=== PATIENT | male | born 1985 | race Caucasian/White ===

== ENCOUNTER 2017-02-09 21:26 | Emergency (ER) | payer OTHER ==
[~2017-02-09] VITALS: Ht 170.2 cm; Wt 111.5 kg
[2017-02-09 21:29] VITALS: Ht 170.2 cm; Wt 111.5 kg
[2017-02-10] MEDS ORDERED: KETOROLAC 60 MG INJ IM STA (00:47)
--- NOTE | 2017-02-10 01:26 | ERD ---
ER Documentation Chief Complaint Date/Time DATE: 02/10/17 TIME: 01:24 Chief Complaint cough x 3 days HPI 31-year-old male presents to emergency department for complaints of cough for 3 days, right-sided chest pain, right rib pain for 3 days. Patient described the pain as sharp pain, succession scale, is worse upon taking a deep breath. Patient has been having dry cough, does not cough up any phlegm or blood. Patient denies any shortness of breath or wheezing. Patient denies any fever or chills. Patient denies any dyspnea on exertion or dyspnea on lying down. Patient did not take any medication to help with symptoms. ROS All systems reviewed and are negative except as per history of present illness. Medications Home Meds Reported Medications [none] Unknown Strength No Conflict Check 02/10/17 Allergies Allergies: Coded Allergies: No Known Allergy (Unverified , 02/09/17) PMhx/Soc History of Surgery: Yes (appy) Anesthesia Reaction: No Hx Alcohol Use: Yes (appendectomy) Hx Substance Use: No Hx Tobacco Use: Yes Smoking Status: Current every day smoker FmHx Family History: No coronary disease, No diabetes, No other Physical Exam Vitals Vital Signs Date Time Temp Pulse Resp B/P Pulse Ox O2 Delivery O2 Flow Rate FiO2 02/10/17 01:11 98.4 83 02/09/17 21:29 98.4 115 20 170/80 98 Physical Exam GENERAL: The patient is well developed and appropriate for usual state of health, in no apparent distress. CHEST: Clear to auscultation bilaterally. There are no rales, wheezes or rhonchi. No tenderness on palpation on the right anterior and mid axillary fifth 6th and seventh rib. HEART: Regular rate and rhythm. No murmurs, clicks, rubs or gallops. No S3 or S4. ABDOMEN: Soft, nontender and nondistended. Good bowel sounds. No rebound or guarding. No gross peritonitis. No gross organomegaly or masses. No Lindsey sign or McBurney point tenderness. BACK: No midline or flank tenderness. EXTREMITIES: Equal pulses bilaterally. There is no peripheral clubbing, cyanosis or edema. No focal swelling or erythema. Full range of motion. Grossly neurovascularly intact. NEURO: Alert and oriented. Cranial nerves 2-12 intact. Motor strength in all 4 extremities with 5/5 strength. Sensation grossly intact. Normal speech and gait. SKIN: There is no apparent rash or petechia. The skin is warm and dry. HEMATOLOGIC AND LYMPHATIC: There is no evidence of excessive bruising or lymphedema. No gross cervical, axillary, or inguinal lymphadenopathy. Results 24 hrs Current Medications Medications (Trade) Dose Ordered Sig/Eduardo Route PRN Reason Start Time Stop Time Status Last Admin Dose Admin Ketorolac Tromethamine (Toradol) 60 mg ONCE STAT IM 02/10/17 00:47 02/10/17 00:49 DC 02/10/17 01:37 Patient was given medication for pain here in emergency department, after treatment, patient verbalized feeling much better. Patient's pain is improved. PROCEDURE: AP and lateral chest x-ray. CLINICAL INDICATION: Right-sided chest and rib pain. TECHNIQUE: AP and lateral views of the chest. COMPARISON: None. FINDINGS: There is no pulmonary edema or conolidation. The cardiothymic silhouette is magnified. No pleural effusion is seen. There is no pneumothorax. The osseous structures are unremarkable. IMPRESSION: 1. No radiographic evidence of acute cardiopulmonary disease. RPTAT: HTAR .Roly Arteaga MD, MD Date Time Electronically viewed and signed by .Roly Arteaga MD, MD on 02/10/2017 02:06 .R/ CC: [facility] EKG was done, read by me and is normal sinus rhythm at a rate of 83, normal axis , there is no ST changes or changes in the EKG that indicates any cardiac emergencies at this time. Patient's EKG was also reviewed by Dr Ly. Impression: no acute findings on EKG Procedures/MDM Medical Decision Making: Patient symptoms are most likely consistent with acute bronchitis, which viral in origin. There is low suspicion for Pneumonia at this time since patients lungs sounds are clear, patient O2 saturation is normal and patient doesnt show any respiratory distress. Patients chest xray doesnt show infiltrates or any other cardiopulmonary emergencies at this time. There is low suspicion for other cardiopulmonary emergencies at this time such as CHF, Pulmonary Embolism, Pneumothorax, Aortic Aneurysm or any other cardiopulmonary emergencies at this time. There is low suspicion for sepsis. Patient appears well and is hemodynamically stable. Patient does not have any fever Disposition: Home. Condition: Stable Prescriptions: Guaifenesin with codeine albuterol ibuprofen Instructions: Patient is advised to take medications as prescribed. Patient is advised to rest. Patient advised to increase fluid intake, do humidifier at home and if possible, do salt water gargles. Patient is advised that if symptoms are worse, shortness of breath, uncontrolled fever, stridor, vomiting, worst signs and symptoms to return to emergency department immediately. Otherwise, patient is advised to follow up with primary doctor in 5-7 days. Departure Diagnosis: Primary Impression: Acute bronchitis Bronchitis organism: unspecified organism Qualified Code: J20.9 - Acute bronchitis, unspecified organism Condition: Stable Patient Instructions: Bronchitis, No Antibiotic (Adult) Additional Instructions: Patient is advised to take medications as prescribed. Patient is advised to rest. Patient advised to increase fluid intake, do humidifier at home and if possible, do salt water gargles. Patient is advised that if symptoms are worse, shortness of breath, uncontrolled fever, stridor, vomiting, worst signs and symptoms to return to emergency department immediately. Otherwise, patient is advised to follow up with primary doctor in 5-7 days. TREVOR RENEE NP February 10, 2017 01:26
--- NOTE | 2017-02-10 02:07 | RADRPT ---
PROCEDURE: AP and lateral chest x-ray. CLINICAL INDICATION: Right-sided chest and rib pain. TECHNIQUE: AP and lateral views of the chest. COMPARISON: None. FINDINGS: There is no pulmonary edema or conolidation. The cardiothymic silhouette is magnified. No pleural effusion is seen. There is no pneumothorax. The osseous structures are unremarkable. IMPRESSION: 1. No radiographic evidence of acute cardiopulmonary disease. RPTAT: HTAR .Roly Arteaga MD, MD Date Time Electronically viewed and signed by .Roly Arteaga MD, on 02/10/2017 02:06 .R/
--- NOTE | 2017-02-10 02:08 | RADRPT ---
PROCEDURE: Right rib x-rays CLINICAL INDICATION: Right-sided chest and rib pain. TECHNIQUE: 4 views of the right ribs. COMPARISON: None available. FINDINGS: No displaced rib fracture is identified. There is no pneumothorax. The right lung is clear. The c ardiac silhouette is partially imaged. There is no pleural effusion. IMPRESSION: 1. No rib fracture is identified, although the presence of a nondisplaced rib fracture cannot be ex cluded. RPTAT: HTAR .Roly Arteaga MD, MD Date Time Electronically viewed and signed by .Roly Arteaga MD, on 02/10/2017 02:08 .R/
[2017-02-10] MEDS ORDERED: GUAI473L22 PO (02:36)
[2017-02-10] MEDS ORDERED: IBUP-1542 PO (02:36)
[2017-02-10] MEDS ORDERED: ALBU8.5H3 INH (02:36)
[2017-02-10 03:01] VITALS: BP 151/98; PULSE 95; RESP 16; TEMP 98.3
== END 2017-02-10 03:02 | disposition home or self-care (01) ==
LOC: FTE 21:26
DX: J20.9 Acute bronchitis, unspecified (principal); R07.9 Chest pain, unspecified
CPT/HCPCS: 71020; 71100; 93005; 96372; J1885; Z7502

== ENCOUNTER 2017-02-28 04:56 | Emergency (ER) | payer OTHER ==
[~2017-02-28] VITALS: Ht 185.4 cm; Wt 108.0 kg
[~2017-02-28 04:56] MED LIST: ALBU8.5H3 INH; GUAI473L22 PO; IBUP-1542 PO
[2017-02-28 05:05] VITALS: Ht 185.4 cm; Wt 108.0 kg
--- NOTE | 2017-02-28 07:07 | ERA ---
ER Documentation Chief Complaint Date/Time DATE: 02/28/17 TIME: 07:06 Chief Complaint SOB HPI This is an obese otherwise healthy 31-year-old male presenting with a chief complaint of right sided chest pain. Patient was trying to fall asleep when onset began. Describes the pain as 10 out of 10 and worse when taking deep breaths. Patient has a positive history of smoking since "I was little". Patient denies recent travel, fever, chills, squeezing like chest pain with exertion, claudication, family history of cardiac or pulmonary disease, medications, drug use, alcohol use. Patient works as a cook. Girlfriend later presents and gives a positive history of excessive alcohol use. Patient was seen for similar symptoms on February 09 and was diagnosed with acute bronchitis discharged with Motrin and albuterol inhaler. Patient has not taken any Motrin for relief but he has used the inhaler with minimal relief. Patient denies any medical conditions including clotting and cardiopulmonary disease. ROS All systems reviewed and are negative except as per history of present illness. Medications Home Meds Active Scripts Albuterol Sulfate* (Proair HFA*) 8.5 Gm Hfa.aer.ad, 2 PUFF INH Q4H Y for WHEEZING AND SOB, #1 INHALER Prov:TREVOR RENEE NP 02/10/17 Ibuprofen* (Motrin*) 600 Mg Tab, 600 MG PO Q6H Y for PAIN AND OR ELEVATED TEMP, #30 TAB Prov:TREVOR RENEE NP 02/10/17 Guaifenesin-Codeine Phosphate* (Guaifenesin* AC Cough Syrup) 473 Ml Liquid, 10 ML PO Q4H Y for COUGH, #120 ML Prov:TREVOR RENEE NP 02/10/17 Reported Medications [none] Unknown Strength No Conflict Check 02/10/17 Allergies Allergies: Coded Allergies: No Known Allergy (Unverified , 02/09/17) PMhx/Soc History of Surgery: Yes (appy) Anesthesia Reaction: No Hx Alcohol Use: Yes Hx Substance Use: No Hx Tobacco Use: Yes Smoking Status: Current every day smoker Physical Exam Vitals Vital Signs Date Time Temp Pulse Resp B/P Pulse Ox O2 Delivery O2 Flow Rate FiO2 02/28/17 12:03 98.8 115 22 145/94 95 Room Air 02/28/17 10:19 111 24 99 02/28/17 08:40 105 28 92 02/28/17 05:05 98.3 115 28 129/82 92 Physical Exam Const: Overweight 31-year-old male laying in bed with sheets over him on initial presentation. Head: Atraumatic Eyes: Normal Conjunctiva ENT: Normal External Ears, Nose and Mouth. Neck: No lymphadenopathy. Full range of motion..~ No meningismus. Resp: Expiratory rales and rhonchi heard in all lung zamora bilaterally. Minimal inspiratory findings. Mild to moderate pulmonary exertion. Equal chest expansion bilaterally. No excessive dullness or tympany to percussion in all lung zamora bilaterally. Cardio: Regular rate and rhythm, no murmurs. No JVD noted. Abd: Soft, non tender, non distended. Normal bowel sounds Skin: Healed 6-8 cm horizontal scar noted on the right chest midaxillary line. Back: No midline or flank tenderness Ext: No cyanosis, or edema Neur: Awake and alert Psych: Normal Mood and Affect Results 24 hrs Current Medications Medications (Trade) Dose Ordered Sig/Eduardo Route PRN Reason Start Time Stop Time Status Last Admin Dose Admin Acetaminophen (Tylenol Tab) 650 mg ONCE ONCE PO 02/28/17 07:30 02/28/17 07:31 DC 02/28/17 07:55 Albuterol (Proventil 0.083% (Neb)) 5 mg ONCE STAT N 02/28/17 08:31 02/28/17 08:33 DC 02/28/17 08:57 Ipratropium [place] (Atrovent 0.02% (Neb)) 0.5 mg ONCE ONCE HHN 02/28/17 09:00 02/28/17 09:01 DC 02/28/17 08:58 Methylprednisolone Sodium Succinate (Solu-Medrol) 125 mg ONCE ONCE IM 02/28/17 10:30 02/28/17 10:31 DC 02/28/17 10:10 Albuterol (Proventil 0.083% (Neb)) 5 mg ONCE STAT HHN 02/28/17 10:01 02/28/17 10:05 DC 02/28/17 10:18 Ipratropium [place] (Atrovent 0.02% (Neb)) 0.5 mg ONCE ONCE N 02/28/17 10:30 02/28/17 10:31 DC 02/28/17 10:18 Procedures/MDM Patient was worked up for lateral right-sided chest wall pain. Physical exam of the oropharynx was unremarkable. X-rays taken on February 09 and was repeated today of the chest with an additional x-ray of the right ribs. Patient was given 650 mg of Tylenol for pain relief in the emergency department. X-rays of the chest and x-rays of the right ribs were unremarkable. Patient was also given a breathing treatment in the ED. After breathing treatment administration , patient was reevaluated and still had extensive rales and rhonchi in the chest during expiration bilaterally. Tripoding is noted after exertion. No neck extension while breathing. I spoke with my attending Dr. Baron who suggested 125 mg IM of Solu-Medrol and another breathing treatment. Breathing treatment and steroids were administered and reevaluated 30 minutes later and 1 hour later. Upon reevaluation 1 hour later the patient has moderately improved with minimal rales and rhonchi findings predominantly in the upper lobes bilaterally. Exertion still produced shortness of breath and tripoding to assist with breathing. Patient states that he feels about "50% better". Still complaining of chest wall pain on the right side. Patient's oxygen saturation has increased to 95 at rest. At this time I spoke with my attending who has agreed that monitoring patient overnight may be the best possible option at this point due to slow recovery and the likelihood return to ED. This patient will now be transferred to ED 1 and be under the care of Dr. Atkinson. I have spoken with the patient and he understands his current status. Departure Diagnosis: Primary Impression: Shortness of breath Additional Impressions: Chest wall pain Right-sided chest wall pain Condition: Stable Additional Instructions: Being transferred to ED 1. Comments Before transfer to ED 1 patient left AMA. Patient states that he has enough albuterol without getting another prescription and refused to take any prescription medications on departure. I have sat down and talked to the patient about the severity of his current condition and the importance of him to be medically observed and further managed. Patiently verbally so that he understood but just does not have time to stay in the ER. Patient then proceeded to sign AMA papers and leave without reevaluation. EMRE BROWNING PA-C February 28, 2017 07:07
[2017-02-28] MEDS ORDERED: ACETAMINOPHEN 325 MG TAB PO ONE (07:30)
--- NOTE | 2017-02-28 08:07 | RADRPT ---
PROCEDURE: XR Chest. CLINICAL INDICATION: chest pain TECHNIQUE: PA and lateral views of the chest were obtained COMPARISON: 02/10/2017 FINDINGS: The heart and mediastinum are within normal limits. The lungs are clear. There is no pleural effusion or pneumothorax. The bones and soft tissues are unremarkable. RPTAT: AA IMPRESSION: No acute disease. .Luis Tinajero MD, MD Date Time Electronically viewed and signed by .Luis Tinajero MD, on 02/28/2017 08:07 .S/
--- NOTE | 2017-02-28 08:08 | RADRPT ---
PROCEDURE: XR ribs . CLINICAL INDICATION: pain TECHNIQUE: AP and oblique views of the right ribs were obtained. COMPARISON: 02/10/2017 FINDINGS: The bone mineralization is normal. There is no acute fracture or subluxation. The soft tissues are unremarkable. RPTAT: AA IMPRESSION: No acute fracture. .Luis Tinajero MD, MD Date Time Electronically viewed and signed by .Luis Tinajero MD, on 02/28/2017 08:07 .S/
[2017-02-28] MEDS ORDERED: ALBUTEROL 0.083% (NEB) 2.5 MG/3 ML AMP HHN STA ×2 (08:31→10:01)
[2017-02-28] MEDS ORDERED: IPRATROPIUM (NEB) 0.5 MG/2.5 ML AMP HHN ONE ×2 (09:00→10:30)
[2017-02-28] MEDS ORDERED: METHYLPREDNISOLONE 125 MG INJ IM ONE (10:30)
[2017-02-28 12:03] VITALS: BP 145/94; PULSE 115; RESP 22; TEMP 98.8
== END 2017-02-28 13:21 | disposition left against medical advice (07) ==
LOC: FTE 04:56
DX: R06.02 Shortness of breath (principal); R07.89 Other chest pain; F17.210 Nicotine dependence, cigarettes, uncomplicated
CPT/HCPCS: 71020; 71100; 93005; 94644; 94645; 96372; J2930; Z7502; Z7610

== ENCOUNTER 2018-03-12 05:17 | Emergency (ER) | END 2018-03-12 07:46 | disposition home or self-care (01) ==